=== PATIENT | female | born 1930 | race Two or more races ===

== ENCOUNTER 2019-05-31 16:31 | Inpatient (IN) | payer OTHER, MEDICAID ==
[~2019-05-31] VITALS: Ht 149.9 cm; Wt 40.6 kg
[2019-05-31] MEDS ORDERED: MAGNESIUM 2 G PREMIX 50 ML IV STA (16:40)
[2019-05-31] MEDS ORDERED: ALBUTEROL (0.083%) 2.5MG/3ML NEB HHN STA (16:40)
[2019-05-31] MEDS ORDERED: IPRATROPIUM BROMIDE (0.02%) 0.5MG/2.5ML NEB HHN STA (16:40)
[2019-05-31] MEDS ORDERED: METHYLPREDNISOLONE SOD SUCC 125 MG/2 ML VIAL IV STA (16:40)
[2019-05-31] MEDS ORDERED: HYDRALAZINE 20MG/ML VIAL IV ONE (16:45)
[2019-05-31] MEDS ORDERED: NITROGLYCERIN OINT 1GM/INCH UDPKT TD ONE (16:45)
[2019-05-31 17:07] LABS: BASOPHILS % 0.2 % (0.0-2.0); EOSINOPHILS % 1.9 % (0.0-5.0); HEMATOCRIT. 24.8 % (36.0-48.0); HEMOGLOBIN. 8.4 g/dL (12.0-16.0); LYMPHOCYTES % 49.9 % (20.0-50.0); MEAN CORPUSCULAR HEMOGLOBIN 32.4 pg (28.0-32.0); MEAN PLATELET VOLUME 7.8 fl (7.4-10.4); PLATELET 317 x1000/uL (130-400); RED BLOOD CELL COUNT 2.58 mill/uL (4.2-5.4); RED CELL DISTRIBUTION WIDTH 13.6 % (11.6-14.6)
[2019-05-31 17:11] LABS: CHLORIDE 110 mEq/L (98-107); INR 1.1; PROTHROMBIN TIME 11.4 sec (9.6-11.0)
[2019-05-31 17:18] LABS: PHOSPHORUS 5.2 mg/dL (2.5-4.9)
[2019-05-31 17:29] LABS: BG BASE EXCESS -15.5 mmol/L (-2.0-2.0); BG BILEVEL POS AIRWAY PRESSURE 15/5; BG CARBOXYHEMOGLOBIN 0.2 % (0.5-1.5); BG DEOXYHEMOGLOBIN 1.4 % (0.0-5.0); BG METHEMOGLOBIN 0.3 % (0.0-1.5); BG OXYGEN SATURATION 98.6 % (92.0-98.5); BG OXYHEMOGLOBIN 98.1 % (94.0-97.0); BG PCO2 22.9 mmHg (35.0-45.0); BG PH 7.257 (7.350-7.450); BG PO2 174.9 mmHg (75.0-100.0); BG SAMPLE SITE RIGHT BRACHIAL; BG VENT MODE MASK - BIPAP; BG VENT RATE 16 set
[2019-05-31] MEDS ORDERED: LEVOFLOXACIN 250MG PREMIX 50 ML IV ONE (17:30)
[2019-05-31] MEDS ORDERED: PIPERACILLIN/TAZ 3.375G PREMIX 50 ML IV ONE (17:30)
[2019-05-31] MEDS ORDERED: SODIUM BICARBONATE 8.4% 1 MEQ/ML 50ML SYR IV ONE (18:30)
[2019-05-31] MEDS ORDERED: SODIUM CHLORIDE 0.9% 1000ML BAG (SEPSIS BOLUS) IV ONE (20:30)
[2019-06-01] VITALS (7 sets, daily range): BP systolic 138–156; BP diastolic 63–102
[2019-06-01] MEDS ORDERED: LEVOFLOXACIN 500MG PREMIX 100 ML IV SCH (02:30)
[2019-06-01] MEDS ORDERED: PIPERACILLIN/TAZ 3.375G PREMIX 50 ML IV SCH (02:30)
[2019-06-01] MEDS ORDERED: ACETAMINOPHEN 325MG TABLET PO PRN (02:30)
[2019-06-01] MEDS ORDERED: DEXT 5%/0.45% NACL 1000ML 1,000 ML IV SCH (04:00)
[2019-06-01] MEDS ORDERED: SODIUM BICARBONATE 8.4% 1 MEQ/ML 50ML SYR IV NR (04:00)
[2019-06-01] MEDS ORDERED: ALEN70TA68 PO (05:28)
[2019-06-01] MEDS ORDERED: SODI650T PO (05:28)
[2019-06-01] MEDS ORDERED: METOPROLOL PO (05:28)
[2019-06-01] MEDS ORDERED: CILO50TA PO (05:28)
[2019-06-01] MEDS ORDERED: ATOR20TA65 PO (05:28)
[2019-06-01] MEDS ORDERED: NIFE30TA83 PO (05:28)
[2019-06-01] MEDS ORDERED: CLOP75TA4 PO (05:28)
[2019-06-01 07:54] LABS: BG BASE EXCESS -7.8 mmol/L (-2.0-2.0); BG BILEVEL POS AIRWAY PRESSURE ST=15/5; BG CARBOXYHEMOGLOBIN 0.3 % (0.5-1.5); BG DEOXYHEMOGLOBIN 1.1 % (0.0-5.0); BG FRACTION INSPIRED OXYGEN 40; BG HCO3 ACT 14.6 mmol/L (22.0-26.0); BG METHEMOGLOBIN 0.6 % (0.0-1.5); BG OXYGEN SATURATION 98.9 % (92.0-98.5); BG PH 7.481 (7.350-7.450); BG PO2 198.5 mmHg (75.0-100.0); BG PRESSURE SUPPORT 10; BG SAMPLE SITE RIGHT BRACHIAL; BG TOTAL HEMOGLOBIN 7.3 g/dL (12.0-18.0); BG VENT MODE MASK - BIPAP; BG VENT RATE 16 set
[2019-06-01] MEDS ORDERED: PNEUMOCOCCAL 23-VAL P-SAC VAC 0.5 ML IM ONE (08:00)
[2019-06-01] MEDS ORDERED: ENOXAPARIN 30MG/0.3ML SYR SUBCUT SCH (09:00)
[2019-06-01] MEDS: IPRATROPIUM/ALBUTEROL 0.5-3(2.5)MG/3ML NEB INH PRN ×2 (09:43→17:02)
[2019-06-01] MEDS: PIPERACILLIN/TAZ 2.25G PREMIX 50 ML IV SCH ×2 (09:48→21:38)
[2019-06-01 11:29] LABS: HEMATOCRIT. 22.1 % (36.0-48.0); HEMOGLOBIN. 7.6 g/dL (12.0-16.0); LYMPHOCYTES % 13.5 % (20.0-50.0); MEAN CORPUSCULAR HEMOGLOBIN 32.3 pg (28.0-32.0); MEAN CORPUSCULAR VOLUME 93.8 fL (81.0-99.0); MEAN PLATELET VOLUME 8.1 fl (7.4-10.4); MONOCYTES % 7.2 % (2.0-8.0); NEUTROPHILS % 79.3 % (40.0-76.0); PLATELET 231 x1000/uL (130-400); RED BLOOD CELL COUNT 2.36 mill/uL (4.2-5.4); RED CELL DISTRIBUTION WIDTH 13.5 % (11.6-14.6)
[2019-06-01 11:54] LABS: CHLORIDE 112 mEq/L (98-107)
[2019-06-01 12:05] LABS: LDL CHOLESTEROL 50 mg/dL (5-100)
[2019-06-01 12:07] LABS: HDL CHOLESTEROL 73 mg/dL (40-59); T4 FREE 0.95 ng/dL (0.76-1.46)
[2019-06-01] MEDS ORDERED: ONDANSETRON HCL 4MG TABLET PO PRN (12:30)
[2019-06-01] MEDS ORDERED: NITROGLYCERIN 0.4MG TABLET SL SL PRN (12:30)
[2019-06-01] MEDS ORDERED: HYDRALAZINE 20MG/ML VIAL IV PRN (12:30)
[2019-06-01] MEDS ORDERED: HYDROCODONE/ACETAMINOPHEN 5/325MG TABLET PO PRN (12:30)
[2019-06-01] MEDS ORDERED: LACTULOSE 20G/30ML UDC PO PRN (12:30)
[2019-06-01] MEDS ORDERED: FUROSEMIDE 100MG/10ML VIAL IVP SCH (15:00)
[2019-06-01] MEDS: AMLODIPINE 5MG TABLET PO SCH (15:02)
[2019-06-01] MEDS: METHYLPREDNISOLONE SOD SUCC 40 MG/ML VIAL IV SCH ×2 (15:03→23:57)
[2019-06-01] MEDS: FAMOTIDINE 20MG/2ML VIAL IV SCH (15:03)
[2019-06-01] MEDS: SODIUM BICARBONATE 650 MG TABLET PO SCH (17:00)
[2019-06-01 19:10] LABS: COLOR URINE YELLOW (YELLOW); KETONES URINE NEGATIVE (NEGATIVE); LEUKOCYTE ESTERASE URINE NEGATIVE (NEGATIVE); NITRITE URINE NEGATIVE (NEGATIVE); OCCULT BLOOD URINE 3+ (NEGATIVE); PH URINE 5.5 (4.5-8.0); PROTEIN URINE 3+ (NEGATIVE); SPECIFIC GRAVITY URINE 1.015 (1.005-1.030); UROBILINOGEN URINE 0.2 E.U./dL (0.2-1.0)
[2019-06-01 19:13] LABS: CLARITY URINE CLOUDY (CLEAR)
[2019-06-01 19:27] LABS: *AMPHETAMINES SCREEN URINE NEGATIVE (NEGATIVE)
[2019-06-01 19:28] LABS: *BARBITURATES SCREEN URINE NEGATIVE (NEGATIVE); *BENZODIAZEPINES SCREEN URINE NEGATIVE (NEGATIVE); *COCAINE SCREEN URINE NEGATIVE (NEGATIVE); METHADONE URINE SCREEN NEGATIVE (NEGATIVE); OPIATES URINE SCREEN NEGATIVE (NEGATIVE); PHENCYCLIDINE URINE SCREEN NEGATIVE (NEGATIVE)
[2019-06-01 19:29] LABS: CANNABINOID URINE SCREEN NEGATIVE (NEGATIVE)
[2019-06-01] MEDS: GUAIFENESIN 200MG/10ML SUGAR FREE UDC PO PRN ×2 (20:25→23:57)
[2019-06-01] MEDS: BUDESONIDE 0.5MG/2ML NEB HHN SCH (20:41)
[2019-06-01] MEDS: IPRATROPIUM/ALBUTEROL 0.5-3(2.5)MG/3ML NEB HHN SCH (20:41)
[2019-06-01] MEDS ORDERED: LEVOFLOXACIN 250MG PREMIX 50 ML IV SCH (21:00)
[2019-06-01] MEDS ORDERED: EPOETIN ALFA 10000UNITS/ML VIAL SUBCUT SCH (21:00)
[2019-06-01 23:16] LABS: HEPATITIS B SURFACE ANTIGEN NEGATIVE
[2019-06-01 23:18] LABS: HEPATITIS A AB IGM NEGATIVE (NEGATIVE)
[2019-06-01] MEDS: FUROSEMIDE 100MG/10ML VIAL IVP SCH (23:59)
[2019-06-02] VITALS (29 sets, daily range): BP systolic 134–174; BP diastolic 57–87
[2019-06-02] MEDS: IPRATROPIUM/ALBUTEROL 0.5-3(2.5)MG/3ML NEB HHN SCH ×4 (03:59→21:31)
[2019-06-02] MEDS: FUROSEMIDE 100MG/10ML VIAL IVP SCH ×3 (05:27→21:18)
[2019-06-02 06:07] LABS: BASOPHILS % 0.1 % (0.0-2.0); HEMATOCRIT. 21.8 % (36.0-48.0); HEMOGLOBIN. 7.5 g/dL (12.0-16.0); MEAN CORPUSCULAR HEMOGLOBIN 32.3 pg (28.0-32.0); MEAN CORPUSCULAR VOLUME 93.7 fL (81.0-99.0); MEAN PLATELET VOLUME 8.3 fl (7.4-10.4); MONOCYTES % 2.6 % (2.0-8.0); NEUTROPHILS % 87.3 % (40.0-76.0); PLATELET 231 x1000/uL (130-400); RED BLOOD CELL COUNT 2.33 mill/uL (4.2-5.4); RED CELL DISTRIBUTION WIDTH 13.5 % (11.6-14.6)
[2019-06-02] MEDS: BUDESONIDE 0.5MG/2ML NEB HHN SCH ×2 (07:58→21:30)
[2019-06-02] MEDS: METHYLPREDNISOLONE SOD SUCC 40 MG/ML VIAL IV SCH (09:00)
[2019-06-02] MEDS: METOPROLOL TARTRATE 25MG TABLET PO SCH ×2 (09:00→21:23)
[2019-06-02] MEDS: AMLODIPINE 5MG TABLET PO SCH (09:00)
[2019-06-02] MEDS: SODIUM BICARBONATE 650 MG TABLET PO SCH ×3 (09:00→19:55)
[2019-06-02] MEDS: PIPERACILLIN/TAZ 2.25G PREMIX 50 ML IV SCH ×2 (11:08→21:18)
[2019-06-02] MEDS: FAMOTIDINE 20MG/2ML VIAL IV SCH (11:08)
[2019-06-02] MEDS ORDERED: SODIUM BICARBONATE 4% (2.4MEQ) 5ML VIAL IV ONE (12:42)
[2019-06-02] MEDS ORDERED: LIDOCAINE HCL 1% 20ML VIAL (Pyxis) INJ ONE (12:43)
[2019-06-02] MEDS ORDERED: HEPARIN 1000 UNITS/ML 10ML ONE (12:43)
[2019-06-02] MEDS ORDERED: FENTANYL CITRATE/PF 50MCG/ML 2ML VIAL ONE (13:32)
[2019-06-02] MEDS ORDERED: FENTANYL CITRATE/PF 50MCG/ML 2ML VIAL IV ONE (14:00)
[2019-06-03] VITALS (15 sets, daily range): BP systolic 120–178; BP diastolic 51–81
[2019-06-03] MEDS: IPRATROPIUM/ALBUTEROL 0.5-3(2.5)MG/3ML NEB HHN SCH ×4 (01:58→20:18)
[2019-06-03 06:14] LABS: BASOPHILS % 0.1 % (0.0-2.0); LYMPHOCYTES % 9.6 % (20.0-50.0); MEAN CORPUSCULAR HEMOGLOBIN 32.2 pg (28.0-32.0); MEAN CORPUSCULAR VOLUME 93.8 fL (81.0-99.0); MONOCYTES % 11.3 % (2.0-8.0); PLATELET 205 x1000/uL (130-400); RED BLOOD CELL COUNT 2.14 mill/uL (4.2-5.4); RED CELL DISTRIBUTION WIDTH 13.4 % (11.6-14.6)
[2019-06-03] MEDS: FUROSEMIDE 100MG/10ML VIAL IVP SCH ×2 (06:32→14:00)
[2019-06-03 08:23] LABS: HEMOGLOBIN. 6.9 g/dL (12.0-16.0)
[2019-06-03] MEDS: PIPERACILLIN/TAZ 2.25G PREMIX 50 ML IV SCH (08:26)
[2019-06-03] MEDS: METHYLPREDNISOLONE SOD SUCC 40 MG/ML VIAL IV SCH (08:27)
[2019-06-03] MEDS: SODIUM BICARBONATE 650 MG TABLET PO SCH ×3 (08:27→17:43)
[2019-06-03] MEDS: FAMOTIDINE 20MG/2ML VIAL IV SCH (08:27)
[2019-06-03] MEDS: AMLODIPINE 5MG TABLET PO SCH (08:27)
[2019-06-03] MEDS: METOPROLOL TARTRATE 25MG TABLET PO SCH ×2 (08:28→21:12)
[2019-06-03] MEDS: BUDESONIDE 0.5MG/2ML NEB HHN SCH ×2 (10:30→20:18)
[2019-06-03 20:53] LABS: HEMATOCRIT 24.6 % (36.0-48.0); HEMOGLOBIN 8.7 g/dL (12.0-16.0)
[2019-06-03] MEDS: PIPERACILLIN/TAZOBACTAM 2.25 G in DEXTROSE 5% WATER 50 ML IV SCH (21:13)
[2019-06-04] VITALS (12 sets, daily range): BP systolic 113–157; BP diastolic 50–75
[2019-06-04] MEDS: IPRATROPIUM/ALBUTEROL 0.5-3(2.5)MG/3ML NEB HHN SCH ×3 (02:02→20:29)
[2019-06-04 05:45] LABS: BASOPHILS % 0.1 % (0.0-2.0); HEMATOCRIT. 24.2 % (36.0-48.0); HEMOGLOBIN. 8.5 g/dL (12.0-16.0); LYMPHOCYTES % 13.7 % (20.0-50.0); MEAN CORPUSCULAR VOLUME 91.2 fL (81.0-99.0); MEAN PLATELET VOLUME 8.3 fl (7.4-10.4); MONOCYTES % 12.7 % (2.0-8.0); NEUTROPHILS % 73.5 % (40.0-76.0); PLATELET 141 x1000/uL (130-400); RED BLOOD CELL COUNT 2.65 mill/uL (4.2-5.4)
[2019-06-04 07:16] LABS: HIV SCREEN 4G Non Reactive (Non Reactive)
[2019-06-04] MEDS: BUDESONIDE 0.5MG/2ML NEB HHN SCH ×2 (08:47→20:28)
[2019-06-04] MEDS: PIPERACILLIN/TAZOBACTAM 2.25 G in DEXTROSE 5% WATER 50 ML IV SCH (09:13)
[2019-06-04] MEDS: SODIUM BICARBONATE 650 MG TABLET PO SCH ×3 (09:14→16:46)
[2019-06-04] MEDS: METHYLPREDNISOLONE SOD SUCC 40 MG/ML VIAL IV SCH (09:14)
[2019-06-04] MEDS: METOPROLOL TARTRATE 25MG TABLET PO SCH ×2 (09:14→20:08)
[2019-06-04] MEDS: FUROSEMIDE 40MG TABLET PO SCH ×2 (09:15→20:08)
[2019-06-04] MEDS: AMLODIPINE 5MG TABLET PO SCH (09:15)
[2019-06-04] MEDS: FAMOTIDINE 20MG/2ML VIAL IV SCH (10:00)
[2019-06-04 15:49] LABS: BG BASE EXCESS 0.4 mmol/L (-2.0-2.0); BG CARBOXYHEMOGLOBIN 0.3 % (0.5-1.5); BG DEOXYHEMOGLOBIN 5.7 % (0.0-5.0); BG FRACTION INSPIRED OXYGEN 21; BG HCO3 ACT 23.5 mmol/L (22.0-26.0); BG METHEMOGLOBIN 0.4 % (0.0-1.5); BG OXYGEN SATURATION 94.3 % (92.0-98.5); BG OXYHEMOGLOBIN 93.6 % (94.0-97.0); BG PCO2 31.8 mmHg (35.0-45.0); BG PH 7.486 (7.350-7.450); BG PO2 68.9 mmHg (75.0-100.0); BG SAMPLE SITE LEFT BRACHIAL; BG TOTAL HEMOGLOBIN 9.6 g/dL (12.0-18.0); BG VENT MODE ROOM AIR
[2019-06-04] MEDS ORDERED: EPOETIN ALFA 10000UNITS/ML VIAL SUBCUT NR (21:00)
[2019-06-04] MEDS ORDERED: ATORVASTATIN CALCIUM 20MG TABLET PO SCH (21:00)
== END 2019-06-04 21:48 | disposition home or self-care (01) | DRG 280 ==
LOC: ER 19:14 → 5EST 19:39 → EDBEDREQ 19:42 → EDBEDREQTM 19:42 → ENRESERV 22:27 → 5EST 06-02 14:10
PROVIDERS: ADMIT Internal Medicine; ATTEND Internal Medicine
PROC: 5A09357 Assistance with Respiratory Ventilation, Less than 24 Consecutive Hours, Continuous Positive Airway Pressure (ICD-10-PCS; 2019-05-31)
PROC: 5A09357 Assistance with Respiratory Ventilation, Less than 24 Consecutive Hours, Continuous Positive Airway Pressure (ICD-10-PCS; 2019-06-01)
PROC: 0JH63XZ Insertion of Tunneled Vascular Access Device into Chest Subcutaneous Tissue and Fascia, Percutaneous Approach (ICD-10-PCS; principal; 2019-06-02)
PROC: 02H633Z Insertion of Infusion Device into Right Atrium, Percutaneous Approach (ICD-10-PCS; 2019-06-02)
PROC: B2141ZZ Fluoroscopy of Right Heart using Low Osmolar Contrast (ICD-10-PCS; 2019-06-02)
PROC: B244ZZZ Ultrasonography of Right Heart (ICD-10-PCS; 2019-06-02)
PROC: 5A1D70Z Performance of Urinary Filtration, Intermittent, Less than 6 Hours Per Day (ICD-10-PCS; 2019-06-02)
PROC: 30233N1 Transfusion of Nonautologous Red Blood Cells into Peripheral Vein, Percutaneous Approach (ICD-10-PCS; 2019-06-03)
PROC: 5A1D70Z Performance of Urinary Filtration, Intermittent, Less than 6 Hours Per Day (ICD-10-PCS; 2019-06-03)
DX: I21.4 Non-ST elevation (NSTEMI) myocardial infarction (principal); J18.1 Lobar pneumonia, unspecified organism; N18.6 End stage renal disease; I50.43 Acute on chronic combined systolic (congestive) and diastolic (congestive) heart failure; J96.01 Acute respiratory failure with hypoxia; J44.1 Chronic obstructive pulmonary disease with (acute) exacerbation; E87.2 Acidosis; J44.0 Chronic obstructive pulmonary disease with (acute) lower respiratory infection; N17.9 Acute kidney failure, unspecified; I13.2 Hypertensive heart and chronic kidney disease with heart failure and with stage 5 chronic kidney disease, or end stage renal disease; J91.8 Pleural effusion in other conditions classified elsewhere; R65.10 Systemic inflammatory response syndrome (SIRS) of non-infectious origin without acute organ dysfunction; E78.5 Hyperlipidemia, unspecified; R74.0 Nonspecific elevation of levels of transaminase and lactic acid dehydrogenase [LDH]; E83.39 Other disorders of phosphorus metabolism; I16.0 Hypertensive urgency; D64.9 Anemia, unspecified; E02 Subclinical iodine-deficiency hypothyroidism; I25.10 Atherosclerotic heart disease of native coronary artery without angina pectoris; R62.7 Adult failure to thrive; Z99.2 Dependence on renal dialysis; Z88.6 Allergy status to analgesic agent
CPT/HCPCS: 36415; 36558; 36600; 71045; 76700; 76937; 77001; 80048; 80061; 80076; 80305; 81003; 82270; 82375; 82805; 83036; 83540; 83550; 83605; 83735; 83880; 84100; 84145; 84439; 84443; 84484; 85014; 85018; 86705; 86706; 86709; 86803; 86850; 86900; 86920; 87340; 87389; 93005; 93306; 93970; 93971; 94640; 94660; 96374; 97162; 99152; 99153; 99291; C1750; J0360; J0885; J1644; J1650; J1940; J1956; J2543; J2920; J2930; J3010; J3475; J3490; J7030; J7050; J7060; J7611; J7620; J7626; P9016; A4315; G0500

== ENCOUNTER 2019-11-02 01:09 | Inpatient (IN) | payer OTHER, MEDICAID ==
[~2019-11-02] VITALS: Ht 152.4 cm; Wt 40.1 kg
[~2019-11-02 01:09] MED LIST: ALEN70TA68 PO; SODI650T PO
[2019-11-02 01:40] LABS: BASOPHILS % 0.2 % (0.0-2.0); EOSINOPHILS % 0.8 % (0.0-5.0); HEMOGLOBIN. 10.5 g/dL (12.0-16.0); LYMPHOCYTES % 35.3 % (20.0-50.0); MEAN CORPUSCULAR HEMOGLOBIN 29.9 pg (28.0-32.0); MEAN CORPUSCULAR VOLUME 91.5 fL (81.0-99.0); MEAN PLATELET VOLUME 7.5 fl (7.4-10.4); MONOCYTES % 11.8 % (2.0-8.0); NEUTROPHILS % 51.9 % (40.0-76.0); PLATELET 349 x1000/uL (130-400); RED CELL DISTRIBUTION WIDTH 15.8 % (11.6-14.6)
[2019-11-02 01:42] LABS: BG BASE EXCESS -2.3 mmol/L (-2.0-2.0); BG BILEVEL POS AIRWAY PRESSURE 15/5; BG CARBOXYHEMOGLOBIN 0.3 % (0.5-1.5); BG DEOXYHEMOGLOBIN 0.4 % (0.0-5.0); BG FRACTION INSPIRED OXYGEN 100; BG HCO3 ACT 23.3 mmol/L (22.0-26.0); BG METHEMOGLOBIN 0.2 % (0.0-1.5); BG OXYGEN SATURATION 99.6 % (92.0-98.5); BG OXYHEMOGLOBIN 99.1 % (94.0-97.0); BG PH 7.351 (7.350-7.450); BG PO2 349.3 mmHg (75.0-100.0); BG SAMPLE SITE RIGHT RADIAL; BG TOTAL HEMOGLOBIN 10.2 g/dL (12.0-18.0); BG VENT MODE MASK - BIPAP
[2019-11-02 01:44] LABS: CHLORIDE 102 mEq/L (98-107)
[2019-11-02] MEDS ORDERED: LABETALOL 5MG/ML SYR 20 MG/4 ML SYRINGE IV ONE (02:15)
[2019-11-02] MEDS ORDERED: NITROGLYCERIN 0.4MG TABLET SL SL ONE (02:15)
[2019-11-02] MEDS ORDERED: FUROSEMIDE 20MG/2ML VIAL IVP NR (05:45)
[2019-11-02] MEDS ORDERED: IPRATROPIUM/ALBUTEROL 0.5-3(2.5)MG/3ML NEB HHN PRN (09:00)
[2019-11-02] MEDS ORDERED: ONDANSETRON HCL 4MG/2ML INJ IV PRN (09:00)
[2019-11-02] MEDS ORDERED: ACETAMINOPHEN 325MG TABLET PO PRN (09:00)
[2019-11-02] MEDS: HYDRALAZINE HCL 50MG TABLET PO SCH ×2 (09:41→22:09)
[2019-11-02] MEDS: NIFEDIPINE XL 60MG TAB PO SCH (09:41)
[2019-11-02] MEDS ORDERED: LEVOFLOXACIN 500MG PREMIX 100 ML IV SCH ×2 (12:15→16:00)
[2019-11-02 14:19] VITALS: BP 151/59
[2019-11-02 16:00] VITALS: BP 130/50
[2019-11-02] MEDS: ENOXAPARIN 30MG/0.3ML SYR SUBCUT SCH (16:51)
[2019-11-02 18:00] VITALS: BP 150/66
[2019-11-02 20:00] VITALS: BP 157/55
[2019-11-02 22:00] VITALS: BP 138/53
[2019-11-03] VITALS (12 sets, daily range): BP systolic 112–189; BP diastolic 52–78
[2019-11-03 06:56] LABS: HEMATOCRIT. 27.4 % (36.0-48.0); HEMOGLOBIN. 9.1 g/dL (12.0-16.0); MEAN CORPUSCULAR HEMOGLOBIN 29.9 pg (28.0-32.0); MEAN CORPUSCULAR VOLUME 90.4 fL (81.0-99.0); MEAN PLATELET VOLUME 7.3 fl (7.4-10.4); PLATELET 318 x1000/uL (130-400); RED BLOOD CELL COUNT 3.03 mill/uL (4.2-5.4); RED CELL DISTRIBUTION WIDTH 15.5 % (11.6-14.6)
[2019-11-03] MEDS: ENOXAPARIN 30MG/0.3ML SYR SUBCUT SCH (08:11)
[2019-11-03] MEDS: NIFEDIPINE XL 60MG TAB PO SCH (08:11)
[2019-11-03] MEDS: CLOPIDOGREL 75MG TABLET PO SCH (08:11)
[2019-11-03] MEDS: HYDRALAZINE HCL 50MG TABLET PO SCH ×2 (08:12→20:43)
[2019-11-03] MEDS ORDERED: ASPIRIN 81MG TABLET PO SCH (09:00)
[2019-11-03 14:09] LABS: PLATELET ESTIMATE NORMAL
[2019-11-03 16:02] LABS: BG BASE EXCESS -1.4 mmol/L (-2.0-2.0); BG CARBOXYHEMOGLOBIN 0.1 % (0.5-1.5); BG DEOXYHEMOGLOBIN 7.1 % (0.0-5.0); BG FRACTION INSPIRED OXYGEN 21; BG METHEMOGLOBIN 0.3 % (0.0-1.5); BG OXYGEN SATURATION 92.9 % (92.0-98.5); BG OXYHEMOGLOBIN 92.5 % (94.0-97.0); BG PCO2 32.2 mmHg (35.0-45.0); BG PH 7.452 (7.350-7.450); BG PO2 64.6 mmHg (75.0-100.0); BG SAMPLE SITE RIGHT BRACHIAL; BG VENT MODE ROOM AIR
[2019-11-03] MEDS ORDERED: EPOETIN ALFA 4000UNITS/ML VIAL SUBCUT SCH (21:00)
[2019-11-04] VITALS (12 sets, daily range): BP systolic 137–165; BP diastolic 55–77
[2019-11-04] MEDS ORDERED: CLONIDINE 0.1MG TABLET PO PRN (04:30)
[2019-11-04] MEDS: NIFEDIPINE XL 60MG TAB PO SCH (08:18)
[2019-11-04] MEDS: HYDRALAZINE HCL 50MG TABLET PO SCH ×2 (08:18→21:03)
[2019-11-04] MEDS: ENOXAPARIN 30MG/0.3ML SYR SUBCUT SCH (08:18)
[2019-11-04] MEDS: CLOPIDOGREL 75MG TABLET PO SCH (08:18)
[2019-11-04] MEDS ORDERED: LEVOFLOXACIN 250MG PREMIX 50 ML IV SCH (11:00)
[2019-11-04] MEDS ORDERED: HYDR-4135 MT (12:09)
[2019-11-04] MEDS ORDERED: NIFE-32 MT (12:09)
[2019-11-04] MEDS ORDERED: LEVO500T2 MT (12:09)
[2019-11-04] MEDS ORDERED: HEPARIN SODIUM 1,000 UNIT/1ML VIAL IV NR (15:49)
== END 2019-11-04 21:15 | disposition home or self-care (01) | DRG 871 ==
LOC: ER 01:09 → 3WST 05:35 → EDBEDREQTM 05:43 → EDBEDREQ 05:43 → EDBEDREQSVC 05:43 → ENRESERV 12:45
PROVIDERS: ADMIT Internal Medicine; ATTEND Internal Medicine
PROC: 5A09357 Assistance with Respiratory Ventilation, Less than 24 Consecutive Hours, Continuous Positive Airway Pressure (ICD-10-PCS; principal; 2019-11-02)
PROC: 5A1D70Z Performance of Urinary Filtration, Intermittent, Less than 6 Hours Per Day (ICD-10-PCS; 2019-11-02)
PROC: 5A1D70Z Performance of Urinary Filtration, Intermittent, Less than 6 Hours Per Day (ICD-10-PCS; 2019-11-02)
DX: A41.9 Sepsis, unspecified organism (principal); J96.01 Acute respiratory failure with hypoxia; N18.6 End stage renal disease; I50.43 Acute on chronic combined systolic (congestive) and diastolic (congestive) heart failure; J18.9 Pneumonia, unspecified organism; I13.2 Hypertensive heart and chronic kidney disease with heart failure and with stage 5 chronic kidney disease, or end stage renal disease; I16.1 Hypertensive emergency; E44.0 Moderate protein-calorie malnutrition; I42.9 Cardiomyopathy, unspecified; J44.1 Chronic obstructive pulmonary disease with (acute) exacerbation; Z68.1 Body mass index [BMI] 19.9 or less, adult; E87.70 Fluid overload, unspecified; D63.8 Anemia in other chronic diseases classified elsewhere; E87.5 Hyperkalemia; I08.1 Rheumatic disorders of both mitral and tricuspid valves; E03.9 Hypothyroidism, unspecified; I25.10 Atherosclerotic heart disease of native coronary artery without angina pectoris; Z95.5 Presence of coronary angioplasty implant and graft; Z99.2 Dependence on renal dialysis; Z88.6 Allergy status to analgesic agent; I25.2 Old myocardial infarction; Z79.899 Other long term (current) drug therapy
CPT/HCPCS: 36415; 36600; 71045; 80048; 80053; 82375; 82805; 83605; 83880; 84145; 84484; 85025; 93005; 93306; 94660; 99291; J0885; J1644; J1650; J1940; J1956; J3490; J7620